=== PATIENT | male | born 1935 | race African-American/Black ===

== ENCOUNTER 2021-04-25 15:07 | Emergency (ER) | payer OTHER ==
[2021-04-25 16:04] VITALS: TEMP 98.9; BMI 29.2
[2021-04-25] MEDS ORDERED: SODIUM CHLORIDE 1,000 ML IV STA (16:38)
[2021-04-25 19:39] LABS: ALBUMIN 3.8 g/dl (3.4-5.0); CALCIUM 10.2 mg/dL (8.5-10.1)
[2021-04-25 19:40] LABS: BLOOD UREA NITROGEN 12.7 mg/dL (7-18)
[2021-04-25 19:42] LABS: CREATININE 1.1 mg/dL (0.55-1.3)
[2021-04-25 19:44] LABS: BILIRUBIN,TOTAL 1.1 mg/dL (0.2-1); TOT PROT 7.3 g/dl (6.4-8.2)
[2021-04-25 20:32] LABS: HEMATOCRIT 42.3 % (35.4-49); HEMOGLOBIN 13.5 GM/dL (11.7-16.9); MEAN CELL VOLUME 90.8 fl (80-96); MEAN PLT VOLUME 10.1 fl (7.5-11.1); PLATELET COUNT 161 10^3/uL (134-434); RBC 4.66 M/mm3 (4.00-5.60); RDW 14.7 % (11.9-15.9); WHITE BLOOD COUNT 10.8 K/mm3 (4.0-10.0)
[2021-04-25 23:12] VITALS: BP 132/91; PULSE 82
== END 2021-04-25 23:13 | disposition home or self-care (01) ==
LOC: JER 15:07
DX: R42 Dizziness and giddiness (principal)
CPT/HCPCS: 36415; 80053; 84484; 85027; 93005; 93010; 99284-25

== ENCOUNTER 2021-10-08 10:34 | Emergency (ER) | payer OTHER ==
[2021-10-08 10:57] VITALS: RESP 18; TEMP 98.2; BMI 25.7
[2021-10-08] MEDS ORDERED: SODIUM CHLORIDE 1,000 ML IV STA (11:47)
[2021-10-08] MEDS ORDERED: ACETAMINOPHEN 1000 MG/100 ML BAG IVPB ONE (11:47)
[2021-10-08] MEDS ORDERED: SODIUM PHOSPHATE/NA BIPHOS 133 ML ENEMA PR ONE (11:49)
[2021-10-08 12:51] LABS: HEMATOCRIT 34.4 % (35.4-49); HEMOGLOBIN 11.2 GM/dL (11.7-16.9); MCH 29.4 pg (25.7-33.7); MCHC 32.4 g/dl (32.0-35.9); MEAN CELL VOLUME 90.6 fl (80-96); MEAN PLT VOLUME 9.5 fl (7.5-11.1); PLATELET COUNT 172 10^3/uL (134-434); RDW 14.8 % (11.9-15.9); WHITE BLOOD COUNT 11.1 K/mm3 (4.0-10.0)
[2021-10-08] MEDS ORDERED: ACETAMINOPHEN INJECTION 100 ML IVPB ONE ×2 (12:55→12:59)
[2021-10-08 13:14] LABS: CALCIUM 9.8 mg/dL (8.5-10.1)
[2021-10-08 13:15] LABS: ALBUMIN 3.6 g/dl (3.4-5.0); BLOOD UREA NITROGEN 12.2 mg/dL (7-18)
[2021-10-08 13:19] LABS: BILIRUBIN,TOTAL 0.6 mg/dL (0.2-1); TOT PROT 7.1 g/dl (6.4-8.2)
[2021-10-08 13:22] LABS: LACTIC ACID 2.3 mmol/L (0.4-2.0)
[2021-10-08 14:51] LABS: ANISOCYTOSIS 0; HELMET CELLS 0; HOWELL-JOLLY BODIES 0; MACROCYTOSIS 0; OVALOCYTE 0; ROULEAU 0; SICKELED CELLS 0; TARGET CELLS 0; TEAR DROP CELLS 0; TOXIC GRANULATION 0
[2021-10-08 15:53] LABS: LACTIC ACID 2.3 mmol/L (0.4-2.0)
[2021-10-08 19:03] VITALS: BP 140/75; PULSE 63
== END 2021-10-08 18:45 | disposition home or self-care (01) ==
LOC: JER 10:34
PROC: 3E033NZ Introduction of Analgesics, Hypnotics, Sedatives into Peripheral Vein, Percutaneous Approach (ICD-10-PCS; principal; 2021-10-08)
PROC: 3E0337Z Introduction of Electrolytic and Water Balance Substance into Peripheral Vein, Percutaneous Approach (ICD-10-PCS; 2021-10-08)
DX: K62.89 Other specified diseases of anus and rectum (principal)
CPT/HCPCS: 36415; 74176-TC; 80053; 83605; 83690; 85025; 93005; 93010; 99285-25

== ENCOUNTER 2022-04-26 12:24 | Inpatient (IN) | payer OTHER ==
[2022-04-26] MEDS ORDERED: ACETAMINOPHEN 1000 MG/100 ML BAG IVPB PRN (14:06)
[2022-04-26] MEDS ORDERED: DEXTROSE 5%-NORMAL SALINE 1,000 ML IV SCH (14:15)
[2022-04-26 14:54] LABS: INR 1.31 (0.83-1.09); PROTHROMBIN TIME (PATIENT) 15.1 SEC (9.7-13.0)
[2022-04-26 15:06] LABS: BASO % 0.8 % (0-2.0); LYMPH % 25.9 % (8-40); MCH 20.4 pg (25.7-33.7); MCHC 30.2 g/dl (32.0-35.9); MEAN CELL VOLUME 67.4 fl (80-96); MEAN PLT VOLUME 8.1 fl (7.5-11.1); MONO % 7.7 % (3.8-10.2); NEUT % 63.6 % (42.8-82.8); PLATELET COUNT 244 10^3/uL (134-434); RBC 2.82 M/mm3 (4.00-5.60); RDW 19.9 % (11.9-15.9); RETICULOCYTES 1.67 % (0.5-1.5); WHITE BLOOD COUNT 3.6 K/mm3 (4.0-10.0)
[2022-04-26 15:08] LABS: CALCIUM 9.1 mg/dL (8.5-10.1); HEMOGLOBIN 5.8 GM/dL (11.7-16.9)
[2022-04-26 15:09] LABS: ALBUMIN 3.3 g/dl (3.4-5.0)
[2022-04-26 15:12] LABS: CREATININE 0.8 mg/dL (0.55-1.3)
[2022-04-26 15:13] LABS: BILIRUBIN,TOTAL 0.6 mg/dL (0.2-1); TOT PROT 6.4 g/dl (6.4-8.2)
[2022-04-26] MEDS ORDERED: PANTOPRAZOLE SODIUM 40 MG VIAL IVPUSH ONE (15:51)
[2022-04-26] MEDS ORDERED: PANTOPRAZOLE SODIUM 40 MG/100 ML BAG IVPB ONE (16:04)
[2022-04-26 16:51] LABS: ANISOCYTOSIS 3+; MACROCYTOSIS 0; OVALOCYTE 1+; TARGET CELLS 2+; TEAR DROP CELLS 1+
[2022-04-27 06:57] VITALS: BMI 25.6
[2022-04-27] MEDS: PANTOPRAZOLE SODIUM 40 MG VIAL IVPUSH SCH (09:29)
[2022-04-27 09:33] LABS: HEMATOCRIT 25.8 % (35.4-49); HEMOGLOBIN 8.3 GM/dL (11.7-16.9); MCH 22.8 pg (25.7-33.7); MCHC 32.2 g/dl (32.0-35.9); MEAN CELL VOLUME 70.9 fl (80-96); MEAN PLT VOLUME 8.2 fl (7.5-11.1); PLATELET COUNT 240 10^3/uL (134-434); RBC 3.63 M/mm3 (4.00-5.60); RDW 21.5 % (11.9-15.9)
[2022-04-27] MEDS ORDERED: LOSARTAN POTASSIUM 50 MG TABLET PO ONE (09:45)
[2022-04-27 09:57] LABS: ALBUMIN 3.4 g/dl (3.4-5.0); CALCIUM 9.3 mg/dL (8.5-10.1)
[2022-04-27 10:00] LABS: CREATININE 0.7 mg/dL (0.55-1.3)
[2022-04-27] MEDS ORDERED: LOSARTAN POTASSIUM 50 MG TABLET PO SCH (10:00)
[2022-04-27 10:02] LABS: BILIRUBIN,TOTAL 1.6 mg/dL (0.2-1); TOT PROT 6.6 g/dl (6.4-8.2)
[2022-04-27] MEDS: ISOSORBIDE MONONITRATE 30 MG TAB.SR.24H (FP) PO SCH (10:30)
[2022-04-27] MEDS ORDERED: BISACODYL 5 MG TABLET.DR (FP) PO ONE (14:00)
[2022-04-27] MEDS: DEXTROSE 5%-0.45% SALINE 995 ML with POTASSIUM CHLORIDE 10 MEQ IV SCH (15:10)
[2022-04-27] MEDS ORDERED: POLYETHYLENE GLYCOL 3350 255 GM BTL PO ONE (18:00)
[2022-04-27] MEDS: ATORVASTATIN CA 40 MG TABLET (FP) PO SCH (22:57)
[2022-04-28] MEDS: DEXTROSE 5%-0.45% SALINE 995 ML with POTASSIUM CHLORIDE 10 MEQ IV SCH ×2 (04:06→21:45)
[2022-04-28] MEDS ORDERED: SODIUM PHOSPHATE/NA BIPHOS 133 ML ENEMA RC ONE ×2 (08:00→10:00)
[2022-04-28] MEDS: LOSARTAN POTASSIUM 50 MG TABLET PO SCH (09:41)
[2022-04-28] MEDS: PANTOPRAZOLE SODIUM 40 MG VIAL IVPUSH SCH (09:42)
[2022-04-28] MEDS: ISOSORBIDE MONONITRATE 30 MG TAB.SR.24H (FP) PO SCH (09:42)
[2022-04-28 09:46] LABS: CALCIUM 9.1 mg/dL (8.5-10.1)
[2022-04-28 09:47] LABS: ALBUMIN 3.2 g/dl (3.4-5.0); BLOOD UREA NITROGEN 4.5 mg/dL (7-18)
[2022-04-28 09:50] LABS: CREATININE 0.7 mg/dL (0.55-1.3)
[2022-04-28 09:51] LABS: HEMATOCRIT 26.3 % (35.4-49); HEMOGLOBIN 8.1 GM/dL (11.7-16.9); MCHC 30.8 g/dl (32.0-35.9); MEAN CELL VOLUME 71.5 fl (80-96); MEAN PLT VOLUME 8.2 fl (7.5-11.1); PLATELET COUNT 241 10^3/uL (134-434); RBC 3.68 M/mm3 (4.00-5.60); RDW 21.6 % (11.9-15.9); WHITE BLOOD COUNT 5.5 K/mm3 (4.0-10.0)
[2022-04-28 09:52] LABS: BILIRUBIN,TOTAL 1.4 mg/dL (0.2-1); TOT PROT 6.4 g/dl (6.4-8.2)
[2022-04-28 15:10] VITALS: RESP 20
[2022-04-28] MEDS: ATORVASTATIN CA 40 MG TABLET (FP) PO SCH (22:19)
[2022-04-29] MEDS: DEXTROSE 5%-0.45% SALINE 995 ML with POTASSIUM CHLORIDE 10 MEQ IV SCH (07:39)
[2022-04-29 08:54] LABS: HEMOGLOBIN 8.2 GM/dL (11.7-16.9); MCH 22.5 pg (25.7-33.7); MCHC 31.8 g/dl (32.0-35.9); MEAN CELL VOLUME 70.8 fl (80-96); MEAN PLT VOLUME 8.3 fl (7.5-11.1); PLATELET COUNT 238 10^3/uL (134-434); RBC 3.67 M/mm3 (4.00-5.60); RDW 22.2 % (11.9-15.9); WHITE BLOOD COUNT 5.1 K/mm3 (4.0-10.0)
[2022-04-29] MEDS: LOSARTAN POTASSIUM 50 MG TABLET PO SCH (09:00)
[2022-04-29] MEDS: FERROUS SO4 325 MG TABLET (FP) PO SCH ×2 (09:00→12:21)
[2022-04-29] MEDS: ISOSORBIDE MONONITRATE 30 MG TAB.SR.24H (FP) PO SCH (09:00)
[2022-04-29] MEDS: PANTOPRAZOLE SODIUM 40 MG VIAL IVPUSH SCH (09:00)
[2022-04-29 09:13] LABS: BLOOD UREA NITROGEN 8.7 mg/dL (7-18); MAGNESIUM 2.2 mg/dL (1.8-2.4)
[2022-04-29 09:16] LABS: CREATININE 0.8 mg/dL (0.55-1.3)
[2022-04-29 09:18] LABS: BILIRUBIN,TOTAL 0.8 mg/dL (0.2-1); TOT PROT 6.1 g/dl (6.4-8.2)
[2022-04-29] MEDS ORDERED: FOLIC ACID 1 MG TABLET (FP) PO SCH (10:00)
[2022-04-29] MEDS ORDERED: ASCORBIC ACID 500 MG TABLET (FP) PO SCH (10:00)
[2022-04-29 16:56] VITALS: BP 149/65; PULSE 56; TEMP 98.7
[2022-04-30] MEDS ORDERED: PANTOPRAZOLE 40 MG TABLET PO SCH (10:00)
== END 2022-04-29 16:51 | disposition home or self-care (01) | DRG 812 ==
LOC: JER 12:24 → JERBED 14:11 → J8W 04-27 03:45
PROVIDERS: ADMIT Family Medicine; ATTEND Family Medicine
PROC: 30233N1 Transfusion of Nonautologous Red Blood Cells into Peripheral Vein, Percutaneous Approach (ICD-10-PCS; principal; 2022-04-26)
PROC: 0DB78ZX Excision of Stomach, Pylorus, Via Natural or Artificial Opening Endoscopic, Diagnostic (ICD-10-PCS; 2022-04-28)
PROC: 0DBN8ZX Excision of Sigmoid Colon, Via Natural or Artificial Opening Endoscopic, Diagnostic (ICD-10-PCS; 2022-04-28)
DX: D50.0 Iron deficiency anemia secondary to blood loss (chronic) (principal); K92.2 Gastrointestinal hemorrhage, unspecified; K25.9 Gastric ulcer, unspecified as acute or chronic, without hemorrhage or perforation; I10 Essential (primary) hypertension; E78.5 Hyperlipidemia, unspecified; R53.1 Weakness; I25.10 Atherosclerotic heart disease of native coronary artery without angina pectoris; E86.0 Dehydration; E87.8 Other disorders of electrolyte and fluid balance, not elsewhere classified; D12.5 Benign neoplasm of sigmoid colon; K57.30 Diverticulosis of large intestine without perforation or abscess without bleeding
CPT/HCPCS: 36415; 36430; 71045-TC-FY; 80053; 82272; 83735; 85025; 85027; 85045; 85610; 86850; 86900; 86901; 86922; 88305-TC; 93005; 93010; 99285-25; C9803-CS; P9058; U0003; U0005